=== PATIENT | male | born 1975 | race Caucasian/White ===

== ENCOUNTER 2024-09-22 14:10 | Emergency (ER) | payer SELFPAY ==
[2024-09-22] MEDS ORDERED: Lidocaine 1% w/Epinephrine 1:200K 30 ML VIAL ONE (14:51)
== END 2024-09-22 15:16 | disposition home or self-care (01) ==
LOC: CSHERS 14:10
DX: T19.4XXA Foreign body in penis, initial encounter (principal); F17.210 Nicotine dependence, cigarettes, uncomplicated; W44.8XXA Other foreign body entering into or through a natural orifice, initial encounter
CPT/HCPCS: 99283

== ENCOUNTER 2024-11-16 20:26 | Emergency (ER) | payer OTHER, SELFPAY | END 2024-11-16 23:15 | disposition left against medical advice (07) | LOC: CSHERS 20:26 | DX: Z53.21 Procedure and treatment not carried out due to patient leaving prior to being seen by health care provider (principal) ==